=== PATIENT | female | born 2000 | race Caucasian/White ===

== ENCOUNTER 2019-07-31 23:18 | Emergency (ER) | payer MEDICAID, OTHER ==
[~2019-07-31] VITALS: Ht 170.1 cm; Wt 72.2 kg
--- NOTE | 2019-07-31 23:49 | ED Cough/URI ---
General Chief Complaint: General Problems/Pain Stated Complaint: SORE THROAT,CONGESTION,MALHOTRA,5 MONTH PREG Source: patient, other (bf) Exam Limitations: no limitations History of Present Illness Date Seen by Provider: Jul 31, 2019 Time Seen by Provider: 23:34 Initial Comments Patient present to ER by private conveyance with chief complaint of being at 21 weeks 6 days with chief complaint of one hour of sore throat, cough, chills but no fever. She has not taken anything for it. She says she was exposed somebody else in the sore throat was today earlier. She denies nausea, abdominal pain, diarrhea or dysuria. Allergies and Home Medications Patient Home Medication List Home Medication List Reviewed: Yes Review of Systems Review of Systems Constitutional: chills; No diaphoresis, No fever; malaise EENTM: No ear discharge, No hearing loss, No ear pain Respiratory: cough; No phlegm, No short of breath Cardiovascular: No chest pain, No edema Gastrointestinal: No abdominal pain, No constipation, No diarrhea, No nausea Genitourinary: No discharge, No dysuria Musculoskeletal: No back pain, No joint pain Past [place]u-Xsopno-Ayoh[place] Hx Patient Social History Alcohol Use: Denies Use Recreational Drug Use: No Smoking Status: Never a Smoker Recent Foreign Travel: No Contact w/Someone Who Travel: No Recent Hopitalizations: No Physical Abuse: No Sexual Abuse: No Mistreated: No Fear: No Seasonal Allergies Seasonal Allergies: No Past Medical History Surgeries: No Respiratory: No Cardiac: No Neurological: No Genitourinary: No Gastrointestinal: No Musculoskeletal: No Endocrine: No HEENT: No Cancer: No Psychosocial: No Integumentary: No Blood Disorders: No Physical Exam Vital Signs - First Documented 07/31/19 23:29 Temp 35.5 Pulse 80 Resp 20 B/P (MAP) 89/58 (68) Capillary Refill : Height: '" Weight: lbs. oz. kg; BMI Method: General Appearance: WD/WN, mild distress Eyes: Bilateral Eye Normal Inspection, Bilateral Eye PERRL, Bilateral Eye EOMI HEENT: PERRL/EOMI, normal ENT inspection, TM abnormal (L) (and equal effusion without erythema, injection or bulging) Neck: full range of motion, normal inspection Respiratory: lungs clear, normal breath sounds, no respiratory distress, no accessory muscle use Cardiovascular: normal peripheral pulses, regular rate, rhythm Neurologic/Psychiatric: alert, normal mood/affect Progress/Results/Core Measures Suspected Sepsis SIRS Temperature: Pulse: Respiratory Rate: Blood Pressure / Mean: Results/Orders Lab Results Laboratory Tests Test 07/31/19 23:33 Range/Units Group A Streptococcus Screen NEGATIVE NEGATIVE Micro Results Microbiology 07/31/19 Influenza Types A,B Antigen (SOPHIA) - Final, Complete My Orders Orders - JOHANNA MOREIRA Rapid Strep A Screen (07/31/19 23:26) Influenza A And B Antigens (07/31/19 23:27) Vital Signs/I&O 07/31/19 23:29 Temp 35.5 Pulse 80 Resp 20 B/P (MAP) 89/58 (68) Capillary Refill : Progress Note : Time: 23:48 Progress Note Rapid strep, influenza Departure Impression Primary Impression: Acute viral pharyngitis Disposition: 01 HOME, SELF-CARE Condition: Stable Departure-Patient Inst. Decision time for Depature: 00:05 Referrals: NO,LOCAL PHYSICIAN (PCP/Family) Primary Care Physician Add. Discharge Instructions: Drink plenty of fluids. Tylenol 1000 mg every 8 hours as needed for pain, headache or fever. Vapor rubs such as Vicks or Mentholatum as necessary. If not seeing some improvement in the next 1-2 weeks follow-up with primary care for reevaluation. Flonase 1-2 puffs daily each nostril for the next week or 2 to help open up the ear. Saltwater gargles every 1-2 hours as needed for sore throat. All discharge instructions reviewed with patient and/or family. Voiced understanding. JOHANNA MOREIRA Jul 31, 2019 23:49
[2019-08-01 00:10] VITALS: BP 95/60
== END 2019-08-01 00:11 | disposition home or self-care (01) ==
LOC: ER 23:22
DX: O99.512 Diseases of the respiratory system complicating pregnancy, second trimester (principal); J02.9 Acute pharyngitis, unspecified; Z3A.21 21 weeks gestation of pregnancy
CPT/HCPCS: 87430; 87804

== ENCOUNTER 2022-05-29 13:13 | Outpatient (CLI) | payer MEDICAID ==
[~2022-05-29] VITALS: Ht 170.2 cm; Wt 61.7 kg
[2022-05-29 13:40] LABS: BILIRUBIN,URINE NEGATIVE (NEGATIVE); CLARITY,URINE SL CLOUDY; COLOR,URINE YELLOW; GLUCOSE, URINE (UA) NEGATIVE (NEGATIVE); KETONES,URINE NEGATIVE (NEGATIVE); LEUKOCYTE ESTERASE ,URINE TRACE (NEGATIVE); NITRITE,URINE NEGATIVE (NEGATIVE); PROTEIN,URINE TRACE (NEGATIVE)
[2022-05-29 13:50] VITALS: BP 90/50
[2022-05-29 13:53] LABS: BACTERIA,URINE FEW /HPF
[2022-05-29 13:54] LABS: CALCIUM OXALATE CRYSTALS,UR MODERATE /LPF
[2022-05-29 14:03] LABS: AMPHETAMINE SCREEN, URINE NEGATIVE (NEGATIVE); BARBITURATE SCREEN URINE NEGATIVE (NEGATIVE); BENZODIAZEPINES SCREEN URINE NEGATIVE (NEGATIVE); CANNABINOID SCREEN, URINE NEGATIVE (NEGATIVE); COCAINE SCREEN URINE NEGATIVE (NEGATIVE); METHADONE STAT NEGATIVE (NEGATIVE); OPIATE SCREEN URINE NEGATIVE (NEGATIVE); OXYCODONE STAT NEGATIVE (NEGATIVE); PROPOXYPHENE STAT NEGATIVE (NEGATIVE); TRICYCLIC ANTIDEPRESSANTS SCRE NEGATIVE (NEGATIVE)
[2022-05-29] MEDS ORDERED: PREN-8 PO (14:05)
[2022-05-29 14:13] LABS: BASOPHILS % (AUTO) 0 % (0-10); EOSINOPHILS # (AUTO) 0.1 10^3/uL (0.0-0.3); EOSINOPHILS % (AUTO) 1 % (0-10); HEMATOCRIT 33 % (35-52); HEMOGLOBIN 10.8 g/dL (11.5-16.0); LYMPHOCYTES % (AUTO) 14 % (12-44); MEAN CORPUSCULAR HEMOGLOBIN 27 pg (25-34); MEAN CORPUSCULAR HGB CONC 32 g/dL (32-36); MEAN CORPUSCULAR VOLUME 85 fL (80-99); MEAN PLATELET VOLUME 9.8 fL (9.0-12.2); MONOCYTES # (AUTO) 0.5 10^3/uL (0.0-1.0); MONOCYTES % (AUTO) 8 % (0-12); NEUTROPHILS # (AUTO) 5.3 10^3/uL (1.8-7.8); NEUTROPHILS % (AUTO) 76 % (42-75); PLATELET COUNT 236 10^3/uL (130-400)
--- NOTE | 2022-05-29 16:10 | Diagnostic Imaging Report ---
INDICATION: Delayed care. TECHNIQUE: Multiple real-time grayscale images were obtained over the gravid uterus. COMPARISON: None. FINDINGS: There is a single live intrauterine fetus, currently breech. heart rate of 142 BPM. Amniotic fluid index is 14.5 cm. Placenta is anterior and does extend into the lower uterine segment but does not represent previa with 7 cm from the placental tip to the internal os. The cervical length is 4.2 cm. anatomical survey was normal with structures visualized including kidneys, bladder, stomach, ventricles, brain, four-chamber heart, three-vessel cord, spine, and cord insertion. Biometric measurements are BPD 5.38 cm, head circumference 21.49 cm, abdominal circumference 18.63 cm, and femur length 3.90 cm with estimated weight of 558 g. Maternal adnexa appeared normal. Biometrical measurements are as follows: Biparietal 5.38 cm, age 22 weeks 3 days. Head circumference 21.49 cm, age 23 weeks 4 days. Abdominal circumference 18.63 cm, age 23 weeks 3 days. Femur length 3.90 cm, age 22 weeks 4 days. Sonographic estimate age: 23 weeks 0 days. Sonographic estimated date of delivery: 09/25/2022. Estimated Weight: 558 gm (+/- 82 gm). LMP percentile: 2%. heart rate: 142 beats per minute. number: 1 of 1. IMPRESSION: There is a single live intrauterine fetus with current biometric measurements average for 23 weeks 0 day gestation, currently breech. No abnormalities were demonstrated. LMP percentile is less than 2% by [place]. Dictated by: Dictated on workstation # [id number]
--- NOTE | 2022-05-30 08:03 | Physician Query-Final Dx ---
GEORGE,05/30/22 0803: Clinic Account Progress/Dx Physician Query: Please give diagnosis Please include # weeks gestation Date of Service May 29, 2022 at 13:13 TERRY EWING MD 05/31/22 1625: Clinic Account Progress/Dx DIAGNOSIS: Diagnosis False labor at 25 weeks gestation GEORGE,NovMay 30, 2022 08:03 TERRY EWING MD May 31, 2022 16:25
== END 2022-05-29 15:25 ==
LOC: WSo 13:13 → LDRP 13:16 → WSo 15:25
PROVIDERS: ATTEND Obstetrics & Gynecology
DX: O26.899 Other specified pregnancy related conditions, unspecified trimester (principal); R10.9 Unspecified abdominal pain; Z3A.00 Weeks of gestation of pregnancy not specified
CPT/HCPCS: 36415; 76805; 80306; 81000; 85025; 87088; 99213